=== PATIENT | female | born 1950 | race Caucasian/White ===

== ENCOUNTER → 2016-11-05 | Outpatient (CLI) | payer OTHER ==
--- NOTE | 2016-11-05 23:33 | DX ---
DEXA Bone Mineral Densitometry Clinical Indications: Baseline examination for osteoporosis in a 66-year-old female. The patient is postmenopausal. Technique: Bone Mineral Densitometry (BMD) by Dual Energy X-Ray Absorptiometry (DEXA) was performed utilizing the [employer] scanner. The lumbar spine was evaluated in the AP projection. The bilat eral hips and forearm were evaluated in the AP projection. Vertebral fracture assessment was also p erformed. Comparison: None. AP Lumbar Spine: The L1, L2, L3, and L4 vertebral bodies were evaluated. BMD: 1.22 gm/cm2. T-score: 0.2 SD. Z-score: 0.7 SD. AP Left Hip: Total BMD: 0.994 gm/cm2. T-score: -0.1 SD. Z-score: -0.4 SD. AP Right Hip: Total BMD: 0.990 gm/cm2. T-score: -0.1 SD. Z-score: -0.3 SD. AP Left Forearm, 10/29: BMD: 0.836 gm/cm2. T-score: -0.5 SD. Z-score: 1.1 SD. Vertebral Fracture Assessment: No significant fracture deformity. No prevertebral aortic calcifica tion, significant marginal bone spurring, facet arthrosis, or intrinsic vertebral body sclerosis that would effect the accuracy of the lumbar spine BMD measurement. Conclusion: Considering the lowest measured site, the patient has normal bone density for age. The ten year FRAX risk for any major osteoporotic fracture , which excludes the risk for a wrist frac ture, is 7.3 % and for a hip fracture is 0.4%. Any bone loss in this patient is probably related to aging or estrogen deficiency. To prevent osteoporosis and to promote the patient's bone density, the following recommendations shou ld be considered: 1. Pursue a regular regimen of weightbearing and muscle strengthening exercises in order to reduce t he risk of falls and fractures (as tolerated by the patient's general medical condition). 2. Ensure that daily dietary calcium uptake is maximized. 3. Consider checking the serum vitamin D level. Ensure that intake of vitamin D is 600 IU per day (f or all ages through 70) 800 IU per day (for ages 71 and older). 4. Consider follow-up DEXA scan in 2 to 5 years to assess the rate of bone loss in this patient. Nidia:[id number]
== END ==
LOC: FIMAGING 14:44
PROVIDERS: ATTEND Family Medicine
DX: Z13.820 Encounter for screening for osteoporosis (principal)

== ENCOUNTER → 2017-11-18 | Outpatient (CLI) | payer OTHER | LOC: CIMAGING 12:36 | PROVIDERS: ATTEND Family Medicine | DX: Z12.31 Encounter for screening mammogram for malignant neoplasm of breast (principal) ==

== ENCOUNTER → 2018-11-24 | Outpatient (CLI) | payer OTHER | LOC: CIMAGING 12:26 | PROVIDERS: ATTEND Family Medicine | DX: Z12.31 Encounter for screening mammogram for malignant neoplasm of breast (principal) ==